=== PATIENT | female | born 2000 ===

== ENCOUNTER 2020-07-27 20:09 | Emergency (ER) | payer MEDICAID, SELFPAY ==
[2020-07-27 20:17] VITALS: BP 132/84; PULSE 75; RESP 16; TEMP 36.6; O2SAT 99
--- NOTE | 2020-07-27 20:19 | ED.GENADUL_ITS ---
Discharge Plan Disposition Patient Disposition: HOME Condition: Good Discharge Details Clinical Impression: Encounter for medical assessment ED Provider: Marcelino Garcia Home Meds and New Rx's Prescriptions: No Action methylphenidate HCl [Concerta] 18 mg Tablet Extended Release 24hr 18 mg PO DAILY RF: 0 escitalopram oxalate [Lexapro] 20 mg Tablet 20 mg PO DAILY RF: 0 guanfacine 1 mg Tablet Extended Release 24 Hr 1 mg PO DAILY RF: 0 Discharge Instructions Additional Instructions: Congratulations, you are not . If you notice any worsening of your symptoms, or any new symptoms such as vomiting, diarrhea, fever, chills, shortness of breath, chest pain, numbness, weakness, or fainting , please return immediately to the emergency department for reevaluation. Please follow up with your primary care provider as soon as possible for reassessment and reevaluation. As always, it was a pleasure participating in your medical care today. Medical Decision Making 20-year-old female presents today to see if she is . Patient states she is scheduled for second Covid vaccine and wants to know if she is before getting it. She has no other significant complaints at this time. No breast enlargement or tenderness, no vaginal bleeding or discharge. Last period was 1 month ago. Would be physical exam unremarkable, test negative. I did tell the patient that I feel would be reasonable for her to go ahead and get her second Covid vaccine.. I have extensively reviewed the treatment plan and discharge instructions with the patient. I have addressed all patient concerns at this time. The patient was made aware of what symptoms to monitor for that would warrant a return to the emergency department. Discussed the plan with the patient, they demonstrate verbal understanding and agreement with our assessment and plan at this time. The documentation in this chart was dictated using [employer] dictation software. Please excuse any dictation errors. HPI General Date/Time Provider Initiated Documentation: 07/27/20 20:13 . HPI Narrative: 20-year-old female presents today to see if she is . Patient states she is scheduled for second Covid vaccine and wants to know if she is before getting it. She has no other significant complaints at this time. No breast enlargement or tenderness, no vaginal bleeding or discharge. Last period was 1 month ago. Related Data Home Medications Medication Instructions Recorded Confirmed escitalopram oxalate [Lexapro] 20 mg PO DAILY 07/27/20 07/27/20 guanfacine 1 mg PO DAILY 07/27/20 07/27/20 methylphenidate HCl [Concerta] 18 mg PO DAILY 07/27/20 07/27/20 Allergies Allergy/AdvReac Type Severity Reaction Status Date / Time amoxicillin Allergy Intermediate Hives Unverified 07/27/20 20:20 bee pollen Allergy Intermediate Anaphylaxis Unverified 07/27/20 20:20 Review of Systems All systems reviewed & are unremarkable except as noted in HPI and below PFSH Social History Smoking risk assessment performed?: No Exam Narrative Exam Narrative: 1.Const: Well-nourished, Well-developed, appearing stated age 2.Eyes: PERRL, no conjunctival injection, and symmetrical lids. 3.ENT: Atraumatic external nose and ears. Moist MM. Neck: Symmetric, trachea midline, No thyromegaly. 4.CVS: +S1/S2, No murmurs or gallops. Peripheral pulses 2+ and equal in all extremities. Brisk capillary refill in all extremities. 5.RESP: Unlabored respiratory effort. Clear to auscultation bilaterally. No wheezes rales or rhonchi. Breasts were examined with female nurse Polly at bedside. No rashes lesions or abnormalities. 6.GI: Soft, Nontender/Nondistended, No hepatosplenomegaly. No guarding or rebound. 7.MSK: Normocephalic/Atraumatic, Extremities w/o deformity or ttp No cyanosis or clubbing, Normal movement of all extremities 8.Skin: Warm, Dry. No rashes or lesions. 9.Neuro: marketing services vice president II-XII grossly intact. Sensation grossly intact, no focal neurologic deficits. 10.Psych: (AAO) x3. Appropriate mood and affect
== END 2020-07-27 20:25 | disposition home or self-care (01) ==
LOC: ER 20:26
PROVIDERS: Emergency Provider Student in an Organized Health Care Education/Training Program
DX: Z32.02 Encounter for pregnancy test, result negative (principal)
CPT/HCPCS: 81025; 99282